=== PATIENT | male | born 1970 | race Two or more races ===

== ENCOUNTER 2021-09-26 03:49 | Inpatient (IN) | payer MEDICAID ==
[~2021-09-26] VITALS: Ht 172.7 cm; Wt 93.4 kg
--- NOTE | 2021-09-26 04:50 | NUR ---
PATIENT IN ED FROM HOME WITH REPORT OF RIGHT LE WOUND 2ND TO SPIDER BITE X 5 DAYS AGO.RIGHT LEG SWOLLEN ,HOT TO TOUCH AND TENDER WITH PURULENT DRAINAGE RUNNING DOWN LEG. SEEN BY DR. CONCEPCION AND SET UP FOR I&D.
[2021-09-26] MEDS ORDERED: LIDOCAINE HCL 2% 20 ML VIAL ONE (05:28)
[2021-09-26] MEDS ORDERED: VANCOMYCIN IV 1,000 MG in IV DEXTROSE 5% 250 ML IV ONE (05:30)
[2021-09-26] MEDS ORDERED: IV NORMAL SALINE 1000 ML BAG IV ONE (05:30)
[2021-09-26] MEDS ORDERED: LIDOCAINE HCL 2% 20 ML VIAL IJ ONE (05:30)
[2021-09-26 05:36] LABS: HEMATOCRIT 37.2 % (36.7-47.1); MEAN CORPUSCULAR HEMOGLOBIN 30.3 uug (23.8-33.4); MEAN CORPUSCULAR VOLUME 89.2 fL (73.0-96.2); PLATELET COUNT (AUTO) 253 K/uL (152-348)
[2021-09-26 05:54] LABS: ALANINE AMINOTRANSFERASE 18 U/L (16-63); ALKALINE PHOSPHATASE 150 U/L (50-136); ASPARTATE AMINOTRANSFERASE 16 U/L (15-37); BILIRUBIN,DIRECT 0.2 mg/dL (0.0-0.2); BILIRUBIN,TOTAL 0.8 mg/dL (0.2-1.0); CARBON DIOXIDE 28 mmol/L (21-32); CHLORIDE 92 mmol/L (98-107); CREATININE 1.2 mg/dL (0.6-1.3); POTASSIUM 3.8 mmol/L (3.5-5.1); TOTAL PROTEIN, SERUM 8.2 g/dL (6.4-8.2); UREA NITROGEN, BLOOD 14 mg/dL (7-18)
[2021-09-26 05:56] LABS: GLUCOSE 357 mg/dL (74-106)
[2021-09-26] MEDS ORDERED: VANCOMYCIN 1000 MG VIAL ONE (06:20)
[2021-09-26] MEDS ORDERED: IV NS 1000 ML 1,000 ML IV ONE (06:30)
--- NOTE | 2021-09-26 07:00 | NUR ---
REPORT GIVEN BY CHARGE NURSE TO INCOMING CHARGE NURSE. PATIENT DENIES DISCOMFORT. VANCO 1 GM AND X 2 LITER NS BOLUS INFUSED, VOIDED X 1 ON SHIFT. TEMP DOWN TO 98.0 FROM 100.2, PATIENT DENIES BEING DIABETIC, 352 BLOOD GLUCOSE AND ED [id number] AWARE.
[2021-09-26] MEDS ORDERED: ONDANSETRON 4 MG/2 ML VIAL IV PRN ×2 (08:30→11:15)
[2021-09-26] MEDS ORDERED: ACETAMINOPHEN 325 MG TABLET PO PRN ×2 (08:30→11:15)
[2021-09-26] MEDS ORDERED: REMEDY ESSENTIAL ZINC PASTE 113 GM TP PRN ×2 (08:30→10:15)
[2021-09-26] MEDS ORDERED: MAGNESIUM HYDROXIDE 30 ML LIQUID UDC PO PRN ×2 (08:30→11:15)
[2021-09-26] MEDS ORDERED: IV NS 1000 ML 1,000 ML IV PRN (08:30)
[2021-09-26] MEDS ORDERED: ENOXAPARIN SODIUM 40 MG/0.4 ML DISP.SYRIN SQ ONE (08:58)
[2021-09-26] MEDS: ENOXAPARIN SODIUM 40 MG/0.4 ML DISP.SYRIN SQ SCH (09:25)
[2021-09-26] MEDS ORDERED: HYDROCODONE/APAP 5-325MG TABLET ONE (10:02)
[2021-09-26] MEDS: HYDROCODONE/APAP 5-325MG TABLET PO PRN ×2 (10:24→21:30)
[2021-09-26] MEDS ORDERED: DEXTROSE 50% 50 ML DISP.SYRIN IV PRN (15:30)
[2021-09-26] MEDS ORDERED: VANCOMYCIN IV 1,500 MG in IV DEXTROSE 5% 500 ML IV SCH ×4 (16:00)
[2021-09-26] MEDS: BLOOD SUGAR DIAGNOSTIC 1 EACH STRIP VI SCH ×2 (17:11→21:18)
[2021-09-26] MEDS ORDERED: INSULIN REGULAR, HUMAN 300 UNIT/3 ML VIAL ONE (17:12)
[2021-09-26] MEDS: VANCOMYCIN IV 1,500 MG in IV DEXTROSE 5% 500 ML IV SCH (17:20)
[2021-09-26] MEDS: INSULIN REGULAR, HUMAN 300 UNIT/3 ML VIAL SQ PRN ×2 (17:30→21:35)
--- NOTE | 2021-09-26 19:15 | NUR ---
CHANGE OF SHIFT REPORT FROM JAIME DEL CIDDATABASE ARCHITECT
--- NOTE | 2021-09-26 19:36 | NUR ---
PATIENT WILL BE ADMITTED TO MED/SURG ROOM 318
--- NOTE | 2021-09-26 20:09 | NUR ---
REPORT GIVEN TO ARASH DEL CID
--- NOTE | 2021-09-26 20:30 | NUR ---
Patient taken to Med Surg Unit (RM 318), A/Ox4. Recieved by Domenic DEL CID. All belongings with patient.
[2021-09-26 21:00] VITALS: BP 106/71
[2021-09-26] MEDS ORDERED: PIPERACILLIN/TAZOBACTAM/D5W 50 ML IV ONE ×2 (21:15→21:16)
[2021-09-26] MEDS: PIPERACILLIN SODIUM/TAZOBACTAM 3.375 G in IV DEXTROSE 5% 50 ML IV SCH (21:19)
[2021-09-26] MEDS: IV NS 1000 ML 1,000 ML IV PRN (21:22)
[2021-09-26] MEDS ORDERED: PIPERACILLIN SODIUM/TAZOBACTAM 3.375 G in IV DEXTROSE 5% 50 ML IV SCH (22:00)
[2021-09-27] MEDS: PIPERACILLIN SODIUM/TAZOBACTAM 3.375 G in IV DEXTROSE 5% 50 ML IV SCH ×4 (02:21→23:55)
[2021-09-27 04:49] VITALS: BP 100/68
[2021-09-27] MEDS: VANCOMYCIN IV 1,500 MG in IV DEXTROSE 5% 500 ML IV SCH ×2 (05:34→20:30)
[2021-09-27] MEDS: BLOOD SUGAR DIAGNOSTIC 1 EACH STRIP VI SCH ×4 (06:08→21:04)
[2021-09-27] MEDS: PANTOPRAZOLE SODIUM 40 MG TABLET.DR PO SCH (06:08)
--- NOTE | 2021-09-27 06:32 | NUR ---
Admitted to room 318; admission procedures done; wound care done; VSS; continue to monitor; plan of care initiated
[2021-09-27] MEDS ORDERED: PANTOPRAZOLE SODIUM 40 MG TABLET.DR PO SCH (07:00)
[2021-09-27 07:33] LABS: POTASSIUM 3.7 mmol/L (3.5-5.1)
[2021-09-27 07:33] LABS: *BILIRUBIN,URIN NEGATIVE (NEGATIVE); *BLOOD, URINE NEGATIVE (NEGATIVE); *CLARITY,URINE CLEAR (CLEAR); *COLOR,URINE YELLOW (YELLOW); *KETONES,URINE NEGATIVE (NEGATIVE); LEUKOCYTE ESTERASE ,URINE NEGATIVE (NEGATIVE); NITRITE, URINE NEGATIVE (NEGATIVE); UGLUCOSE 2+ (NEGATIVE)
[2021-09-27 07:37] LABS: *AMPHETAMINE, URINE POSITIVE (NEGATIVE); *CANNABINOID, URINE NEGATIVE (NEGATIVE); *COCCAINE, URINE NEGATIVE (NEGATIVE); *PHENCYCLIDINE SCREEN,URINE NEGATIVE (NEGATIVE)
[2021-09-27] MEDS: INSULIN REGULAR, HUMAN 300 UNIT/3 ML VIAL SQ PRN ×4 (08:03→21:06)
[2021-09-27] MEDS: ENOXAPARIN SODIUM 40 MG/0.4 ML DISP.SYRIN SQ SCH (08:04)
--- NOTE | 2021-09-27 08:30 | NUR ---
RECEIVED PATIENT IN BED AWAKE ALERT AND ORIENTED DENIES PAIN OR DISCOMFORTS AT THIS TIME INSULIN GIVEN PER SLIDING SCALE NO S/S OF HYPERGLYCEMIC REACTIONS AT THIS TIME NO S/S OF ADVERSE OR ALLERGIC REACTIONS FROM ATB ORDERED DRESSING INTACT TO BOTH ELBOWS AND RIGHT ARM MADE COMFORTABLE WILL CONTINUE TO OBSERVE.
[2021-09-27 09:09] LABS: MEAN CORPUSCULAR HEMOGLOBIN 30.2 uug (23.8-33.4); MEAN CORPUSCULAR VOLUME 89.4 fL (73.0-96.2); PLATELET COUNT (AUTO) 227 K/uL (152-348)
[2021-09-27 09:24] LABS: MAGNESIUM 1.7 mg/dL (1.8-2.4)
[2021-09-27 11:45] LABS: BACTERIA,URINE FEW /HPF (NONE SEEN); SQUAMOUS EPITHELIAL CELL,UR NONE SEEN /HPF (NONE SEEN); WBC,URINE 0-3 /HPF (0-3)
[2021-09-27 11:46] LABS: RBC,URINE NONE SEEN /HPF (0-3)
[2021-09-27 12:00] VITALS: BP 94/58
[2021-09-27 12:09] LABS: *OPIATE, URINE POSITIVE (NEGATIVE)
[2021-09-27] MEDS: IV NS 1000 ML 1,000 ML IV PRN (12:17)
--- NOTE | 2021-09-27 12:30 | NUR ---
NOTIFIED BENOIT LY PROVIDER RE BLOOD SUGAR AT THIS TIME IS 305 AND PATIENT IS ON MILD SLIDING SCALE AND HE STATED ITS OKAY FOR NOW SINCE HE HAS ADDED METFORMIN AND GLIPIZIDE AND NOTED.
[2021-09-27] MEDS: glipiZIDE 5 MG TABLET PO SCH (16:57)
[2021-09-27] MEDS: METFORMIN HCL 500 MG TABLET PO SCH (17:18)
[2021-09-27 17:26] VITALS: BP 94/62
--- NOTE | 2021-09-27 18:00 | NUR ---
BLOOD SUGAR AT THIS TIME IS 175 WITH REGULAR INSULIN PER COVERAGE NO S/S OF HYPO/HYPERGLYCEMIC REACTIONS DENIES PAIN NOR DISCOMFORTS AT THIS TIME RIGHT LOWER EXT ELEVATED ON A PILLOW WILL CONTINUE TO OBSERVE.
[2021-09-27 20:00] VITALS: BP 120/71
--- NOTE | 2021-09-27 22:00 | NUR ---
DRESSING CHANGED ON RIGHT LOWER LEG AT THE SITE OF INFECTION. CLEANED WITH NORMAL SALINE AND APPLIED XEROFOAM AND GAUZE. PT STATED THAT IT DOESN'T HURT MUCH. MAINTAINED ELEVATION OF RIGHT LOWER LEG.
[2021-09-28 04:00] VITALS: BP 102/65
[2021-09-28] MEDS: PIPERACILLIN SODIUM/TAZOBACTAM 3.375 G in IV DEXTROSE 5% 50 ML IV SCH (05:11)
[2021-09-28] MEDS: glipiZIDE 5 MG TABLET PO SCH ×2 (06:40→17:23)
[2021-09-28] MEDS: PANTOPRAZOLE SODIUM 40 MG TABLET.DR PO SCH (06:40)
[2021-09-28] MEDS: BLOOD SUGAR DIAGNOSTIC 1 EACH STRIP VI SCH ×4 (07:18→20:54)
[2021-09-28] MEDS: IV NS 1000 ML 1,000 ML IV PRN ×2 (07:18→21:59)
[2021-09-28] MEDS: INSULIN REGULAR, HUMAN 300 UNIT/3 ML VIAL SQ PRN ×4 (07:55→20:55)
[2021-09-28] MEDS: METFORMIN HCL 500 MG TABLET PO SCH ×2 (08:11→17:24)
[2021-09-28] MEDS: ENOXAPARIN SODIUM 40 MG/0.4 ML DISP.SYRIN SQ SCH (08:13)
[2021-09-28 09:15] LABS: HEMATOCRIT 32.5 % (36.7-47.1); MEAN CORPUSCULAR HEMOGLOBIN 29.8 uug (23.8-33.4); MEAN CORPUSCULAR VOLUME 89.2 fL (73.0-96.2); PLATELET COUNT (AUTO) 260 K/uL (152-348)
[2021-09-28 09:43] LABS: CREATININE 0.9 mg/dL (0.6-1.3); MAGNESIUM 1.8 mg/dL (1.8-2.4); POTASSIUM 3.8 mmol/L (3.5-5.1)
[2021-09-28] MEDS ORDERED: IV NORMAL SALINE 250 ML IV ONE (09:59)
[2021-09-28] MEDS ORDERED: IOHEXOL 350 100 ML INFUS..BTL ONE (09:59)
[2021-09-28] MEDS ORDERED: SWABABLE VALVE TRANSFER SET EA MC ONE (09:59)
[2021-09-28] MEDS ORDERED: VANCOMYCIN IV 1,250 MG in IV DEXTROSE 5% 250 ML IV SCH (10:00)
--- NOTE | 2021-09-28 10:30 | NUR ---
HOMER TURNER MACHINE HERE TO SEE PATIENT WITH NO NEW ORDERS AT THIS TIME.
[2021-09-28 11:23] VITALS: BP 114/78
[2021-09-28] MEDS ORDERED: CLINDAMYCIN PHOSPHATE IV 900 MG in IV DEXTROSE 5% 44 ML IV SCH ×2 (11:45→13:00)
--- NOTE | 2021-09-28 11:46 | NUR ---
WOUND CARE CONSULT: PT PRESENTS WITH HEALING AREAS TO BILATERAL ELBOWS AND WOUND TO RT LOWER LEG, PRESENT ON ADMISSION. PACKING STRIP REMOVED FROM RT LOWER LEG. WOUND NOTED TO HAVE SEROSANGUINOUS DRAINAGE, NO ODOR BUT SOME REDNESS NOTED. DR TAYLOR NOTIFIED OF DPM CONSULT REQUEST. DISCUSSED WOUND CARE OF ELBOWS WITH NURSING STAFF. HEALED AREA NOTED TO LEFT BUTTOCK. MD IN AGREEMENT WITH PLAN OF CARE.
--- NOTE | 2021-09-28 12:00 | NUR ---
CT RIGHT LOWER EXT WITH CONTRAST COMPLETED ORDERED AND BACK TO HIS ROOM.
[2021-09-28] MEDS: CLINDAMYCIN PHOSPHATE IV 900 MG in IV DEXTROSE 5% 44 ML IV SCH ×2 (13:17→20:43)
[2021-09-28] MEDS: ARGININE/GLUTAMINE/CALCIUM BMB 1 EACH POWD.PACK PO SCH ×2 (13:35→17:23)
[2021-09-28] MEDS: PROTEIN SUPPLEMENT (PROSTAT) 30 ML LIQUID PO SCH ×2 (13:35→17:24)
[2021-09-28] MEDS: CEFEPIME HCL 1 G in IV DEXTROSE 5% 50 ML IV SCH ×2 (13:57→22:01)
--- NOTE | 2021-09-28 14:04 | NUR ---
Social work consult was requested for a patient on [facility] for substance abuse resources. Patient is 50-year-old male admitted to the hospital for cellulitis. Patient is Swazi speaking and SW had nurse, johnnie Ruffin. Patient is alert and oriented X3. Patient presents with anxious mood and congruent affect. Patient states his primary printed circuit boards contact printer is , Mariela Small ([phone]) and she lives in [place]. Patient states they have a good relationship. Patient states that he lives at [address] [address] in an apartment with his 22-year-old daughter, Helen ([phone]). Patient states that he is currently unemployed. Patient states he does not have any medical equipment at home and is not currently driving. Patient states that he has a history of alcohol abuse. The toxicology screening reports positive opiates and amphetamines. SW provided the patient resources for substance abuse from [address] [address] ([phone]), [facility] [address] [facility] [address] ([phone]), and [address] [address] ([phone]). SW also provided the number for [facility] ([phone]). Patient appears in the ambivalent about treatment. Patient stated that he would potentially be interested in looking at treatment centers that the SW provided. SW placed the resources in the patients chart. Patient denies a history of a psychiatric diagnosis. Patient denies suicidal or homicidal ideation. The discharge plan is for his daughter, Helen ([phone]) to take him to [address] [address] at discharge.
--- NOTE | 2021-09-28 14:55 | NUR ---
DR MIRAMONTES HERE AND SEEN PATIENT AND DID BESIDE DEBRIDEMENT AFTER CONSCENT SIGNED WITH ORDERS AND NOTED PATIENT TOLERATED WELL.
[2021-09-28] MEDS: HYDROCODONE/APAP 5-325MG TABLET PO PRN (15:12)
--- NOTE | 2021-09-28 15:12 | NUR ---
MEDICATED WITH [facility] FOR PAIN REQUESTED RIGHT LEG ELEVATED ON A PILLOW NOT IN DISTRESS WILL CONTINUE TO OBSERVE.
[2021-09-28 15:20] VITALS: BP 111/72
--- NOTE | 2021-09-28 17:25 | NUR ---
PATIENT HAD IV CONTRAST TODAY APPROXIMATELY 1030 AM WILL HOL GLUCOPHAGE FOR 48 HOURS.
[2021-09-28 20:00] VITALS: BP 105/71
[2021-09-29 04:00] VITALS: BP 109/70
[2021-09-29] MEDS: CLINDAMYCIN PHOSPHATE IV 900 MG in IV DEXTROSE 5% 44 ML IV SCH ×2 (04:34→12:16)
[2021-09-29] MEDS: CEFEPIME HCL 1 G in IV DEXTROSE 5% 50 ML IV SCH ×2 (05:28→13:26)
[2021-09-29] MEDS: BLOOD SUGAR DIAGNOSTIC 1 EACH STRIP VI SCH ×3 (06:08→16:30)
[2021-09-29] MEDS: PANTOPRAZOLE SODIUM 40 MG TABLET.DR PO SCH (06:08)
--- NOTE | 2021-09-29 07:41 | NUR ---
ASLEEP EASILY AROUSABLE ON ROUNDS ON ROOM AIR WITH NO SOB AT THIS TIME NO S/S OF HUPO/HYPERGLYCEMIC REACTIONS AT THIS TIME IVF IS IN PROGRESS ORDERED IV ANTIBIOTICS IN PROGRESS WITH NO ADVERSE OR ALLERGIC REACTIONS AT THIS TIME DRESSING DRY AND INTACT TO BOTH UPPER EXT AND RIGHT LEG.RIGHT LEG ELEVATED ON THE PILLOW TO REDUCE SWELLING CALL LIGHTS AND PERSONAL BELONGINGS ARE WITHIN EASY REACH AT THIS TIME WILL CONTINUE TO OBSERVE.
[2021-09-29] MEDS: glipiZIDE 5 MG TABLET PO SCH ×2 (07:42→16:30)
[2021-09-29] MEDS: INSULIN REGULAR, HUMAN 300 UNIT/3 ML VIAL SQ PRN ×3 (08:05→16:32)
[2021-09-29] MEDS: HYDROCODONE/APAP 5-325MG TABLET PO PRN ×2 (08:38→16:31)
[2021-09-29] MEDS: ENOXAPARIN SODIUM 40 MG/0.4 ML DISP.SYRIN SQ SCH (08:39)
[2021-09-29] MEDS: ARGININE/GLUTAMINE/CALCIUM BMB 1 EACH POWD.PACK PO SCH ×2 (08:39→16:30)
[2021-09-29] MEDS: PROTEIN SUPPLEMENT (PROSTAT) 30 ML LIQUID PO SCH ×2 (08:40→16:31)
[2021-09-29] MEDS ORDERED: THERAHONEY GEL 1.5 OZ TUBE TOP SCH (09:00)
--- NOTE | 2021-09-29 11:00 | NUR ---
FELICE GRIMALDO HERE SEEN PATIENT AND STATED MAY DISCHARGE PATIENT HOME TODAY WITH HOME HEALTH STATED WILL WAIT FOR THE INFECTIOUS DISEASE DOCTOR TO DETERMINE WHICH ANTIBIOTICS HE WILL BE DISCHARGED ON.PATIENT AWARE AWAITING FOR ORDERS.
[2021-09-29 11:40] VITALS: BP 113/75
[2021-09-29] MEDS ORDERED: METF-440 PO (13:59)
[2021-09-29] MEDS ORDERED: GLIP5TAB13 PO (13:59)
[2021-09-29] MEDS ORDERED: CLIN300C12 PO (13:59)
--- NOTE | 2021-09-29 14:00 | NUR ---
DISCHARGE ORDER NOTED PATIENT AWARE THE CORE WINDER STATED TRYING TO GET HOME HEALTH FOR PATIENT.
[2021-09-29 16:00] VITALS: BP 106/69
--- NOTE | 2021-09-29 17:30 | NUR ---
PATENT ENGINEER STATED THAT [facility] WILL BE ABLE TO VISIT PATIENT A FEW TIMES ONLY DUE TO INSURANCE ISSUES.HE SPOKE WITH THE PATIENT AND GAVE HIM ALL THE RESOURCES AND INSTRUCTIONS TO FOLLOW UP WITH [facility] FOR CONTINUATION OF WOUND CARE AND MANAGEMENT OS HIS DIABETES AND HE EXPRESSED UNDERSTANDING.D/C INSTRUCTIONS GIVEN AND PATIENT STATED THAT HIS DAUGHTER MARIO WILL BE HERE SHORTLY TO GIVE HIM A RIDE HOME.EXTRA WOUND DRESSING MATERIALS AND A WALKER GIVEN TO PATIENT AWAITING NOW FOR HIS DAUGHTER TO PICK HIM UP.
--- NOTE | 2021-09-29 19:40 | NUR ---
Discharged home accompanied by sister Helen with walker and supplies for wound care. Instructed to brick picker home meds from [facility] pharmacy. Explained [facility] will see patient twice for wound care instructions. Left in stable condition, not in any form of distress.
[2021-09-30] MEDS ORDERED: METFORMIN HCL 500 MG TABLET PO SCH (18:00)
== END 2021-09-29 19:40 | disposition home health service (06) | DRG 720 ==
LOC: ER 03:51 → TRANSITION 13:00 → MEDSURG3 20:18
PROVIDERS: ADMIT Nurse Practitioner Family; ATTEND Registered Nurse
PROC: 0JBN0ZZ Excision of Right Lower Leg Subcutaneous Tissue and Fascia, Open Approach (ICD-10-PCS; principal; 2021-09-28)
DX: A41.9 Sepsis, unspecified organism (principal); D68.69 Other thrombophilia; E11.40 Type 2 diabetes mellitus with diabetic neuropathy, unspecified; L03.115 Cellulitis of right lower limb; L97.819 Non-pressure chronic ulcer of other part of right lower leg with unspecified severity; L02.414 Cutaneous abscess of left upper limb; S81.801A Unspecified open wound, right lower leg, initial encounter; E11.621 Type 2 diabetes mellitus with foot ulcer; L03.114 Cellulitis of left upper limb; Z72.89 Other problems related to lifestyle; X58.XXXA Exposure to other specified factors, initial encounter; Y93.9 Activity, unspecified; Y92.009 Unspecified place in unspecified non-institutional (private) residence as the place of occurrence of the external cause; B95.0 Streptococcus, group A, as the cause of diseases classified elsewhere; Z20.822 Contact with and (suspected) exposure to COVID-19; E11.622 Type 2 diabetes mellitus with other skin ulcer
CPT/HCPCS: 36415; 71045; 73700; 83605; 83735; 84484; 85025; 85730; 87040; 87070; 87077; 87086; 93005; A4663; G0378; J0692; J1650; J1815; J2543; J3370; J3490; J7040; J7050; J7060; Q9967